=== PATIENT | female | born 1980 | race Caucasian/White ===

== ENCOUNTER 2019-02-19 10:23 | Outpatient (CLI) | payer BC ==
--- NOTE | 2019-02-19 11:28 | CT ---
CT Abdomen W Con: 02/19/2019 12:00 AM CLINICAL INFORMATION: Abnormal ultrasound; diarrhea COMPARISON: Abdominal ultrasound 01/22/2019 TECHNIQUE: Multiple contiguous axial images were obtained and a CT of the abdomen with IV contrast. Oral contra st was administered. Coronal reformats were performed. FINDINGS: Lower Chest: within normal limits. Abdomen: Liver: within normal limits. No definite fatty infiltration. Bile Ducts: Normal caliber. Gallbladder: No calcified gallstones. Normal caliber wall. Pancreas: within normal limits. Spleen: within normal limits. Adrenals: within normal limits. Kidneys: within normal limits. Peritoneum: No ascites or free air, no fluid collection. Bowel: Normal caliber. Normal appendix. Mesentery and Retroperitoneum: No enlarged mesenteric or retroperitoneal lymph nodes. Vessels: Normal. Abdominal Wall: within normal limits. Bones: Within normal limits IMPRESSION: No evidence of acute intraabdominal or pelvic abnormality. .
[2019-02-19] MEDS ORDERED: ISOVUE-370 76%-LOCM 1 ML ONE (17:14)
== END 2019-02-19 10:24 | disposition home or self-care (01) ==
LOC: BICCT 10:23
PROVIDERS: ATTEND Internal Medicine Gastroenterology
DX: K64.8 Other hemorrhoids (principal); R19.7 Diarrhea, unspecified; R93.89 Abnormal findings on diagnostic imaging of other specified body structures
CPT/HCPCS: 74160; Q9966